=== PATIENT | male | born 1985 | race Caucasian/White ===

== ENCOUNTER 2017-05-08 13:20 | Inpatient (IN) | payer OTHER ==
[~2017-05-08] VITALS: Ht 170.2 cm; Wt 130.7 kg
[~2017-05-08 13:20] MED LIST: ACET325T14 PO; AMLO10TA2 PO; ASPI325T17 PO; BENA1TAB10 PO; BENA40TA2 PO; CEFD300C37 PO; DOXA2TAB9 PO; FENO145T32 PO; GEMF600T3 PO; HYDR-3343 PO; HYDR50TA3 PO; LABE100T26 PO; LABE200T3 PO; METO50TA82 PO; POTA10TA PO; SPIR50TA2 PO
[2017-05-08] MEDS ORDERED: BENA20TA2 PO (13:37)
[2017-05-08] MEDS ORDERED: HYDR-3341 PO (13:37)
[2017-05-08] MEDS ORDERED: MORPHINE SULFATE 4 MG/ML, 1ML ONE (13:54)
[2017-05-08] MEDS ORDERED: ONDANSETRON 2MG/ML, 2ML ONE (13:55)
[2017-05-08] MEDS ORDERED: ASPIRIN 81 MG TABLET CHEW ONE (13:55)
[2017-05-08] MEDS ORDERED: NITROGLYCERIN OINT 2%, 1GM TP ONE (13:55)
[2017-05-08] MEDS ORDERED: MORPHINE SULFATE 4 MG/ML, 1ML IVPush PRN (14:00)
[2017-05-08] MEDS ORDERED: SODIUM CHLORIDE FLUSH 10ML SYR IVF ONE (14:00)
[2017-05-08] MEDS ORDERED: ONDANSETRON 2MG/ML, 2ML IVPush ONE (14:00)
[2017-05-08] MEDS ORDERED: SODIUM CHLORIDE 0.9% 1,000ML IVBOLUS ONE (14:00)
[2017-05-08] MEDS ORDERED: ASPIRIN 81 MG TABLET CHEW PO ONE (14:00)
[2017-05-08] MEDS ORDERED: LABETALOL 250 MG in DEXTROSE 5% 200 ML IV PRN (14:00)
[2017-05-08] MEDS ORDERED: NITROGLYCERIN OINT 2%, 1GM TP SCH (14:00)
[2017-05-08 14:24] LABS: HEMATOCRIT 49.3 % (39.2-51.8); HEMOGLOBIN 16.8 g/dL (13.7-18.0); WHITE BLOOD COUNT 11.7 x10^3/uL (3.4-10)
[2017-05-08 14:34] LABS: ASPARTATE AMINO TRANSFERASE 30 U/L (15-37); BLOOD UREA NITROGEN 22 mg/dL (7-18)
[2017-05-08 14:39] LABS: IS PT STATUS REG ER OR PRE ER? YES
[2017-05-08] MEDS ORDERED: ASPIRIN 325 MG TABLET PO ONE (15:00)
[2017-05-08] MEDS ORDERED: LABETALOL 5MG/ML, 20ML ONE (15:08)
[2017-05-08] MEDS ORDERED: LABETALOL 5MG/ML, 20ML IVPush STA (15:10)
[2017-05-08] MEDS ORDERED: LISINOPRIL 20 MG TABLET ONE (15:28)
[2017-05-08] MEDS: LISINOPRIL 20 MG TABLET PO SCH ×2 (15:30→22:17)
[2017-05-08] MEDS: LABETALOL 200 MG TABLET PO SCH ×2 (15:30→22:00)
[2017-05-08] MEDS: SPIRONOLACTONE 25 MG TABLET PO SCH (15:30)
[2017-05-08] MEDS ORDERED: OMNIPAQUE 350 MG/ML, 150 ML BOTTLE ONE (16:36)
[2017-05-08] MEDS ORDERED: ENOXAPARIN 40 MG/0.4 ML SQ SCH (19:30)
[2017-05-08] MEDS ORDERED: BISACODYL 10 MG SUPP PR PRN (19:30)
[2017-05-08] MEDS ORDERED: ACETAMINOPHEN 325 MG TABLET PO PRN (19:30)
[2017-05-08] MEDS ORDERED: PROMETHAZINE 25 MG/ML, 1ML IM PRN (19:30)
[2017-05-08] MEDS ORDERED: ONDANSETRON 2MG/ML, 2ML IVPush PRN (19:30)
[2017-05-08 20:00] LABS: IS PT STATUS REG ER OR PRE ER? YES
[2017-05-08] MEDS ORDERED: ENOXAPARIN 40 MG/0.4 ML ONE (22:19)
[2017-05-08] MEDS: AMLODIPINE 5 MG TABLET PO SCH (22:22)
[2017-05-09 02:02] LABS: IS PT STATUS REG ER OR PRE ER? YES
[2017-05-09 04:29] LABS: HEMATOCRIT 40.2 % (39.2-51.8); HEMOGLOBIN 13.3 g/dL (13.7-18.0); WHITE BLOOD COUNT 8.6 x10^3/uL (3.4-10)
[2017-05-09 04:42] LABS: BLOOD UREA NITROGEN 31 mg/dL (7-18)
[2017-05-09 04:51] LABS: ASPARTATE AMINO TRANSFERASE 17 U/L (15-37)
[2017-05-09] MEDS ORDERED: HEPARIN 5,000 UNITS/ML, 1ML ONE (05:07)
[2017-05-09] MEDS: LABETALOL 200 MG TABLET PO SCH ×3 (06:00→23:17)
[2017-05-09] MEDS ORDERED: MORPHINE SULFATE 4 MG/ML, 1ML ONE (08:59)
[2017-05-09] MEDS ORDERED: NITROGLYCERIN OINT 2%, 1GM TP ONE ×2 (08:59→09:00)
[2017-05-09] MEDS ORDERED: POLYETHYLENE GLYCOL 17 GM PACKET PO PRN (09:00)
[2017-05-09] MEDS: LISINOPRIL 20 MG TABLET PO SCH ×2 (09:00→21:02)
[2017-05-09] MEDS: SPIRONOLACTONE 25 MG TABLET PO SCH (09:00)
[2017-05-09] MEDS ORDERED: BENAZEPRIL 20 MG TABLET PO SCH (09:00)
[2017-05-09] MEDS ORDERED: ASPIRIN 325 MG TABLET PO SCH (09:00)
[2017-05-09] MEDS: GEMFIBROZIL 600 MG TABLET PO SCH (09:00)
[2017-05-09] MEDS: AMLODIPINE 5 MG TABLET PO SCH ×2 (09:00→21:02)
[2017-05-09] MEDS ORDERED: POTASSIUM CHLORIDE 20 MEQ TAB.ER.PRT PO ONE (10:00)
[2017-05-09 10:12] LABS: IS PT STATUS REG ER OR PRE ER? YES
[2017-05-09] MEDS: HEPARIN 5,000 UNITS/ML, 1ML SQ SCH ×2 (10:30→20:27)
[2017-05-09] MEDS ORDERED: POTASSIUM CHLORIDE 20 MEQ TAB.ER.PRT ONE (11:02)
[2017-05-09] MEDS ORDERED: SODIUM CHLORIDE 0.9% 1,000 ML IV SCH (12:00)
[2017-05-09 14:30] VITALS: BP 126/75
[2017-05-09] MEDS: SODIUM CHLORIDE 0.9% 1,000 ML IV SCH ×2 (15:00→20:33)
[2017-05-09 16:23] LABS: IS PT STATUS REG ER OR PRE ER? NO
[2017-05-09 19:21] VITALS: BP 154/83
[2017-05-09] MEDS ORDERED: DOCUSATE 100 MG CAPSULE PO PRN (21:00)
[2017-05-10 01:29] VITALS: BP 161/109
[2017-05-10] MEDS ORDERED: LABETALOL 5MG/ML, 20ML IVPush PRN (02:00)
[2017-05-10] MEDS: HEPARIN 5,000 UNITS/ML, 1ML SQ SCH ×2 (04:20→12:30)
[2017-05-10] MEDS: SODIUM CHLORIDE 0.9% 1,000 ML IV SCH (04:22)
[2017-05-10] MEDS: LABETALOL 200 MG TABLET PO SCH ×2 (06:10→14:49)
[2017-05-10 06:12] LABS: BLOOD UREA NITROGEN 22 mg/dL (7-18)
[2017-05-10 07:25] VITALS: BP 157/109
[2017-05-10] MEDS: SPIRONOLACTONE 25 MG TABLET PO SCH (08:19)
[2017-05-10] MEDS: GEMFIBROZIL 600 MG TABLET PO SCH (08:19)
[2017-05-10] MEDS: AMLODIPINE 5 MG TABLET PO SCH (08:19)
[2017-05-10] MEDS: LISINOPRIL 20 MG TABLET PO SCH (08:20)
[2017-05-10 10:31] LABS: IS PT STATUS REG ER OR PRE ER? NO
[2017-05-10] MEDS ORDERED: LISI-170 PO (12:19)
[2017-05-10] MEDS ORDERED: AMLO5TAB2 PO (12:19)
[2017-05-10] MEDS ORDERED: SPIR25TA PO (12:19)
[2017-05-10] MEDS ORDERED: LABE200T3 PO (12:19)
[2017-05-10 12:44] VITALS: BP 138/95
[2017-05-13] MEDS ORDERED: GEMF600T3 PO (09:39)
[2017-05-13] MEDS ORDERED: NITR0.4T SL (12:31)
== END 2017-05-10 15:49 | disposition home or self-care (01) | DRG 304 ==
LOC: ED 14:34 → EDIP 14:35 → ED 14:58 → 5SO 05-09 11:25 → DCLOUNGE 05-10 15:26
PROVIDERS: ADMIT Internal Medicine; ATTEND Internal Medicine
DX: I16.0 Hypertensive urgency (principal); N17.0 Acute kidney failure with tubular necrosis; E44.0 Moderate protein-calorie malnutrition; Z68.42 Body mass index [BMI] 45.0-49.9, adult; I50.42 Chronic combined systolic (congestive) and diastolic (congestive) heart failure; I11.0 Hypertensive heart disease with heart failure; D72.829 Elevated white blood cell count, unspecified; E66.01 Morbid (severe) obesity due to excess calories; E78.1 Pure hyperglyceridemia; E78.5 Hyperlipidemia, unspecified; F41.9 Anxiety disorder, unspecified; E87.6 Hypokalemia; Z79.82 Long term (current) use of aspirin; Z87.891 Personal history of nicotine dependence
CPT/HCPCS: 36415; 71010; 71275; 80048; 80053; 80061; 82040; 83735; 84100; 84443; 84484; 85025; 85379; 93005; 93306; 96361; 96374; 96375; J1644; J1650; J2405; J7060; Q9967; J7030

== ENCOUNTER 2017-06-23 14:32 | Emergency (ER) | payer OTHER ==
[~2017-06-23] VITALS: Ht 170.2 cm; Wt 113.0 kg
[~2017-06-23 14:32] MED LIST changes: +AMLO5TAB2 PO; +BENA20TA2 PO; +HYDR-3341 PO; +LISI-170 PO; +NITR0.4T SL; +SPIR25TA PO
[2017-06-23] MEDS ORDERED: HYDROmorphone 1 MG/ML, 1ML IVPush PRN (15:00)
[2017-06-23] MEDS ORDERED: SODIUM CHLORIDE FLUSH 10ML SYR IVF ONE (15:00)
[2017-06-23] MEDS ORDERED: ONDANSETRON 2MG/ML, 2ML IVPush ONE (15:00)
[2017-06-23] MEDS ORDERED: HYDROmorphone 1 MG/ML, 1ML ONE (15:07)
[2017-06-23] MEDS ORDERED: ONDANSETRON 2MG/ML, 2ML ONE (15:08)
[2017-06-23 15:44] LABS: HEMATOCRIT 39.5 % (39.2-51.8); HEMOGLOBIN 13.4 g/dL (13.7-18.0); WHITE BLOOD COUNT 5.7 x10^3/uL (3.4-10)
[2017-06-23 15:54] LABS: BLOOD UREA NITROGEN 59 mg/dL (7-18)
[2017-06-23 16:32] VITALS: BP 126/77
== END 2017-06-23 16:37 | disposition home or self-care (01) ==
LOC: ED 15:41
DX: M54.5 Low back pain (principal); I11.0 Hypertensive heart disease with heart failure; I50.9 Heart failure, unspecified; E78.5 Hyperlipidemia, unspecified; I25.2 Old myocardial infarction
CPT/HCPCS: 36415; 74176; 80048; 81003; 82040; 85025; 96374; 96375; 99285; J1170; J2405

== ENCOUNTER 2017-07-01 18:22 | Inpatient (IN) | payer OTHER ==
[~2017-07-01] VITALS: Ht 170.2 cm; Wt 116.3 kg
[2017-07-01 18:55] LABS: HEMATOCRIT 35.8 % (39.2-51.8); HEMOGLOBIN 12.1 g/dL (13.7-18.0); WHITE BLOOD COUNT 6.9 x10^3/uL (3.4-10)
[2017-07-01] MEDS ORDERED: SODIUM CHLORIDE 0.9%, 500ML IVBOLUS ONE (19:00)
[2017-07-01 19:12] LABS: BLOOD UREA NITROGEN 45 mg/dL (7-18)
[2017-07-01 19:17] LABS: ASPARTATE AMINO TRANSFERASE 20 U/L (15-37)
[2017-07-01 19:19] LABS: IS PT STATUS REG ER OR PRE ER? YES
[2017-07-01] MEDS ORDERED: ONDANSETRON 2MG/ML, 2ML IVPush PRN ×2 (21:00→22:00)
[2017-07-01] MEDS ORDERED: SODIUM CHLORIDE 0.9% 1,000 ML IV ONE (21:00)
[2017-07-01] MEDS ORDERED: POLYETHYLENE GLYCOL 17 GM PACKET PO PRN (22:00)
[2017-07-01] MEDS ORDERED: ACETAMINOPHEN 325 MG TABLET PO PRN (22:00)
[2017-07-01] MEDS ORDERED: BISACODYL 10 MG SUPP PR PRN (22:00)
[2017-07-01 22:55] VITALS: BP_SYST 102; BP_SYST 129; BP_SYST 145; BP_DIAS 67; BP_DIAS 83; BP_DIAS 85
[2017-07-01] MEDS: HEPARIN 5,000 UNITS/ML, 1ML SQ SCH (23:34)
[2017-07-01] MEDS: GEMFIBROZIL 600 MG TABLET PO SCH (23:34)
[2017-07-01] MEDS: SODIUM CHLORIDE 0.9% 1,000 ML IV SCH (23:34)
[2017-07-01] MEDS: AMLODIPINE 5 MG TABLET PO SCH (23:34)
[2017-07-01] MEDS ORDERED: FLU VACC QS2017-18 (36MOS+) UP/PF 0.5 ML IM-VACC ONE (23:45)
[2017-07-02 00:51] VITALS: BP_SYST 101; BP_SYST 125; BP_SYST 131; BP_DIAS 61; BP_DIAS 80; BP_DIAS 81
[2017-07-02 01:09] LABS: IS PT STATUS REG ER OR PRE ER? NO
[2017-07-02 04:21] LABS: HEMATOCRIT 34.4 % (39.2-51.8); HEMOGLOBIN 11.8 g/dL (13.7-18.0); WHITE BLOOD COUNT 6.2 x10^3/uL (3.4-10)
[2017-07-02 07:23] LABS: BLOOD UREA NITROGEN 37 mg/dL (7-18)
[2017-07-02 07:28] LABS: ASPARTATE AMINO TRANSFERASE 17 U/L (15-37)
[2017-07-02 07:32] LABS: IS PT STATUS REG ER OR PRE ER? NO
[2017-07-02 07:57] VITALS: BP_SYST 121; BP_SYST 130; BP_SYST 145; BP_DIAS 84; BP_DIAS 85; BP_DIAS 86
[2017-07-02] MEDS: SODIUM CHLORIDE 0.9% 1,000 ML IV SCH ×2 (08:15→18:08)
[2017-07-02] MEDS: ASPIRIN 325 MG TABLET PO SCH (09:02)
[2017-07-02] MEDS: GEMFIBROZIL 600 MG TABLET PO SCH ×2 (09:02→19:34)
[2017-07-02] MEDS: AMLODIPINE 5 MG TABLET PO SCH ×2 (09:02→19:34)
[2017-07-02] MEDS: SENNA/DOCUSATE TABLET PO SCH (09:03)
[2017-07-02] MEDS: HEPARIN 5,000 UNITS/ML, 1ML SQ SCH ×2 (09:03→16:46)
[2017-07-02 14:05] VITALS: BP_SYST 126; BP_SYST 133; BP_SYST 139; BP_DIAS 78; BP_DIAS 80
[2017-07-02 18:41] VITALS: BP_SYST 137; BP_SYST 154; BP_SYST 156; BP_DIAS 82; BP_DIAS 86; BP_DIAS 89
[2017-07-02 19:45] VITALS: BP 169/91
[2017-07-02] MEDS: NITROGLYCERIN 0.4 MG BOTTLE (25 TABS) SL PRN ×2 (19:49→19:55)
[2017-07-02 20:00] VITALS: BP 152/75
[2017-07-03] VITALS (8 sets, daily range): BP systolic 139–180; BP diastolic 82–102
[2017-07-03] MEDS: HEPARIN 5,000 UNITS/ML, 1ML SQ SCH ×3 (01:10→16:29)
[2017-07-03] MEDS: SODIUM CHLORIDE 0.9% 1,000 ML IV SCH ×2 (03:38→12:41)
[2017-07-03 07:25] LABS: BLOOD UREA NITROGEN 31 mg/dL (7-18)
[2017-07-03] MEDS: SENNA/DOCUSATE TABLET PO SCH (07:59)
[2017-07-03] MEDS: ASPIRIN 325 MG TABLET PO SCH (07:59)
[2017-07-03] MEDS: GEMFIBROZIL 600 MG TABLET PO SCH (07:59)
[2017-07-03] MEDS: AMLODIPINE 5 MG TABLET PO SCH ×3 (07:59→17:34)
[2017-07-03] MEDS ORDERED: HYDR-3343 PO (15:07)
== END 2017-07-03 18:36 | disposition home or self-care (01) | DRG 308 ==
LOC: ED 21:37 → EDIP 21:57 → 5SO 22:21
PROVIDERS: ADMIT Hospitalist; ATTEND Hospitalist
DX: R00.1 Bradycardia, unspecified (principal); N17.0 Acute kidney failure with tubular necrosis; I50.42 Chronic combined systolic (congestive) and diastolic (congestive) heart failure; Z68.41 Body mass index [BMI] 40.0-44.9, adult; I11.0 Hypertensive heart disease with heart failure; E66.01 Morbid (severe) obesity due to excess calories; D64.9 Anemia, unspecified; E78.1 Pure hyperglyceridemia; R74.8 Abnormal levels of other serum enzymes; Z23 Encounter for immunization; I25.2 Old myocardial infarction; Z83.3 Family history of diabetes mellitus
CPT/HCPCS: 36415; 71010; 80048; 80053; 81003; 83690; 84484; 85025; 90686; 93005; 93306; 93975; 99285; J1644; J2405; J7030; J7040

== ENCOUNTER 2017-07-14 22:11 | Emergency (ER) | payer SELFPAY ==
[~2017-07-14] VITALS: Ht 170.2 cm; Wt 112.5 kg
[2017-07-14 23:32] LABS: HEMATOCRIT 33.8 % (39.2-51.8); HEMOGLOBIN 11.4 g/dL (13.7-18.0); WHITE BLOOD COUNT 6.4 x10^3/uL (3.4-10)
[2017-07-14 23:44] LABS: ASPARTATE AMINO TRANSFERASE 17 U/L (15-37); BLOOD UREA NITROGEN 32 mg/dL (7-18)
[2017-07-14 23:50] LABS: IS PT STATUS REG ER OR PRE ER? YES
[2017-07-15 01:14] LABS: IS PT STATUS REG ER OR PRE ER? YES
[2017-07-15 01:40] VITALS: BP 150/95
== END 2017-07-15 01:40 | disposition home or self-care (01) ==
LOC: ED 23:28
DX: R07.2 Precordial pain (principal); I10 Essential (primary) hypertension; E78.5 Hyperlipidemia, unspecified
CPT/HCPCS: 36415; 71010; 80053; 83880; 84484; 85025; 93005; 99285